=== PATIENT | male | born 1980 | race Caucasian/White ===

== ENCOUNTER 2020-01-26 03:31 | Emergency (ER) | payer OTHER, SELFPAY ==
[2020-01-26 03:37] VITALS: BP 120/83; PULSE 76; RESP 18; TEMP 36.7; O2SAT 100
[2020-01-26 03:41] VITALS: RESP 17
--- NOTE | 2020-01-26 04:09 | ED.OVERDOSE ---
HPI - Overdose General Chief Complaint: Overdose Stated Complaint: OD Time Seen by Provider: 01/26/20 03:37 Source: patient and EMS Mode of arrival: EMS Limitations: no limitations History of Present Illness HPI Narrative: 39-year-old with a history of opioid addiction was brought in from home with the complaints of overdose. Patient states that he used fentanyl about $20 worth earlier. Was found to be unresponsive by his mother. 911 was called and given 6 mg of Narcan by the time he came to the ER he is wide awake alert denies any complaints. Denies any chest pain or shortness of breath. Patient states that he has been in rehab in the past but he has relapsed several times. Presently denies any chest pain no headache nausea or vomiting or fever. MD complaint: accidental overdose Timing confirmed by: caregiver Intent: unknown How Overdose Was Discovered: called family/friend Context: Accidental Overdose: wanted to get high Related Data Home Medications Medication Instructions Recorded Confirmed No Home Medications 01/26/20 01/26/20 Allergies Allergy/AdvReac Type Severity Reaction Status Date / Time vancomycin Allergy Hallucinati Verified 01/26/20 03:43 ng Review of Systems Review of Systems: All systems reviewed & are unremarkable except as noted in HPI and below Constitutional: Constitutional: Reports no additional constitutional complaints Eyes: Eyes: Reports no additional eye complaints ENT: Reports system reviewed and no additional complaints, except as documented Cardiovascular: Cardiovascular: Reports no additional cardiovascular complaints Respiratory: Respiratory: Reports no additional respiratory complaints Gastrointestinal: Gastrointestinal: Reports no additional gastrointestinal complaints Musculoskeletal: Musculoskeletal: Reports no additional musculoskeletal complaints Integumentary/Breasts: Skin/Breast: Reports system reviewed and no additional complaints, except as docu Exam Narrative: Exam Narrative: GENERAL: Well-appearing, well-nourished, and in no acute distress. HEAD: Normocephalic, atraumatic. EYES: PERRLA and EOMI. ENT: Nares clear, no rhinorrhea or epistaxis. Mucous membranes moist. NECK: Supple. CHEST: Clear to auscultation. No respiratory distress. HEART: Regular rate and rhythm. No murmur heard. Normal peripheral pulses. ABDOMEN: Soft, nontender, nondistended, normal active bowel sounds. EXTREMITIES: Normal range of motion. No edema. SKIN: Warm, dry, no rash. NEURO: No focal deficits. Alert and oriented x3. PSYCH: Normal mood and affect. Course Vital Signs Vital signs: Vital Signs Temperature 36.7 C 01/26/20 03:37 Pulse Rate 76 01/26/20 03:37 Respiratory Rate 18 01/26/20 03:37 Blood Pressure 120/83 01/26/20 03:37 Pulse Oximetry 100 01/26/20 03:37 Temperature 36.7 C 01/26/20 03:37 Pulse Rate 76 01/26/20 03:37 Respiratory Rate 17 01/26/20 03:41 Blood Pressure 120/83 01/26/20 03:37 Pulse Oximetry 100 01/26/20 03:37 Discharge Plan Discharge Clinical Impression: Drug overdose Qualifiers: Encounter type: initial encounter Injury intent: accidental or unintentional Qualified Code(s): T50.901A - Poisoning by unspecified drugs, medicaments and biological substances, accidental (unintentional), initial encounter Patient Disposition: Home, Self-Care Condition: Stable Instructions: Antibiotic Form, Adult Overdose (ED) Prescriptions: No Action No Home Medications RF: 0 Follow-up/Referrals: PHYSICIAN,KNIFE GRINDER [Primary Care Provider] - Time of Disposition: 05:14
[2020-01-26 04:42] VITALS: BP 108/88; PULSE 74; RESP 12; O2SAT 99
[2020-01-26 05:39] VITALS: BP 109/75; PULSE 89; RESP 18; O2SAT 99
--- NOTE | 2020-01-26 09:38 | ECG_ITS ---
Measurements Intervals [place] Rate: 86 P: 79 [place]: 144 QRS: 53 QRSD: 99 T: 32 QT: 398 QTc: 477 Interpretive Statements SINUS RHYTHM BASELINE ARTIFACT- I, II, III, AVR, AVL, AVF, V1-V6 NORMAL ECG Electronically Signed On 01-26-2020 9:43:22 CDT by Jerry Baxter D.O.
== END 2020-01-26 05:40 | disposition home or self-care (01) ==
PROVIDERS: Emergency Provider Family Medicine
DX: T50.901A Poisoning by unspecified drugs, medicaments and biological substances, accidental (unintentional), initial encounter (principal)
CPT/HCPCS: 93005; 99283

== ENCOUNTER 2020-05-28 14:51 | Inpatient (IN) | payer OTHER, SELFPAY ==
--- NOTE | ~2020-05-28 | US_ITS ---
EXAMINATION: US venous doppler LE RT DATE: 05/28/2020 15:44 INDICATION: Right lower limb pain, erythema and swelling TECHNIQUE: Grayscale ultrasound images without and with compression and Doppler ultrasound images of the right lower extremity veins were obtained. COMPARISON: None. FINDINGS: The visualized portions of right common femoral vein, profunda (deep) femoral vein, femoral vein, pop liteal vein, peroneal trunk, posterior tibial veins, peroneal veins, gastrocnemius vein and greater s aphenous vein outflow are patent. 2.9 x 0.4 cm anechoic fluid collection anterior to the knee along t he superficial margin of the patella suggestive of prepatellar bursitis. IMPRESSION: 1. No deep venous thrombosis in the right lower limb. 2. Small fluid collection anterior to the patella suggestive of prepatellar bursitis. Reviewed, dictated and finalized at location A. O ADMINISTRATOR IMPRESSION: 1. No deep venous thrombosis in the right lower limb. 2. Small fluid collection anterior to the patella suggestive of prepatellar bur sitis.
--- NOTE | ~2020-05-28 | XR_ITS ---
EXAMINATION: XR shoulder RT min 2V DATE: 05/28/2020 16:00 INDICATION: Pain at the top of the right shoulder post fall one month prior. TECHNIQUE: AP internally and externally rotated, AP oblique externally rotated and transscapular Y vi ews of the right shoulder were obtained. COMPARISON: None FINDINGS: There is approximately 1.2 cm cephalad subluxation of the right clavicle relative to the acromion. Th ere is corresponding widening of the coracoclavicular interval which measures 1.6 cm. Just of a small amount of calcification along the course of the coracoclavicular interval suggesting developing hete rotopic ossification related to coracoclavicular ligament tear. Glenohumeral alignment is normal with normal joint space. No fractures identified. Visualized portions of the lungs are clear. IMPRESSION: Type III acromioclavicular joint separation. Reviewed, dictated and finalized at location A. DENT HALL DIRECTOR
--- NOTE | ~2020-05-28 | XR_ITS ---
EXAMINATION: XR knee RT min 4V DATE: 05/28/2020 15:58 INDICATION: Anterior right knee pain post injury 2 days prior TECHNIQUE: Anteroposterior, 2 oblique and crosstable lateral views of the right knee were obtained COMPARISON: None. FINDINGS: Alignment is normal. No fracture. No joint effusion/layering lipohemarthrosis. Dense soft tissue swe lling anterior to the patella which appears to correspond to the small fluid collection seen on the p rior lower extremity Doppler ultrasound study. Given the additional history of trauma would favor sma ll hematoma over prepatellar bursitis. IMPRESSION: 1. No osseous abnormality. 2. Prepatellar soft tissue swelling with small fluid collection evident on prior ultrasound most like ly small posttraumatic hematoma with differential including bursitis Reviewed, dictated and finalized at location A. T [address] [facility] IMPRESSION: 1. No osseous abnormality. 2. Prepatellar soft tissue swelling with small fluid collection evident on prio r ultrasound most likely small posttraumatic hematoma with differential includi ng bursitis
[2020-05-28 14:56] VITALS: BP 130/79; PULSE 93; RESP 18; TEMP 36.4; O2SAT 99
--- NOTE | 2020-05-28 15:27 | PC.NURSE ---
Taken to US at this time.
[2020-05-28 16:08] LABS: Basophils Absolute Auto 0.1 K/mm3 (0.0-0.1); Basophils Percent Auto 0.4 % (0.2-1.2); Eosinophils Absolute Auto 0.2 K/mm3 (0-0.3); Eosinophils Percent Auto 1.2 % (0-4.4); Hematocrit 42.6 % (42.0-52.0); Hemoglobin 14.4 g/dL (14.0-18.0); Immature Granulocyte Absolute 0.04 K/mm3 (0.00-0.031); Immature Granulocyte Percent A 0.3 % (0-0.5); Lymphocytes Absolute Auto 2.36 K/mm3 (0.9-3.2); Lymphocytes Percent Auto 19.7 % (18.3-44.2); Mean Corpuscular HGB Conc 33.8 g/dl (32-36); Mean Corpuscular Volume 85.9 fl (80-100); Mean Platelet Volume 9.6 fl (7.4-10.4); Monocytes Absolute Auto 1.1 K/mm3 (0.1-0.6); Monocytes Percent Auto 9.5 % (2.6-8.5); Neutrophils Absolute Auto 8.3 K/mm3 (1.3-6.7); Neutrophils Percent Auto 68.9 % (45.5-73.1); Platelet Count Result 251 k/mm3 (150-375); Red Blood Count 4.96 M/mm3 (4.6-6.20); Red Cell Distribution Width 14.1 % (11.5-14.5)
--- NOTE | 2020-05-28 16:14 | ED.LOWEXIN ---
HPI - Extremity Injury (Lower) General Chief Complaint: Extremity Injury, Lower <Thalia Morris PA-C - Last Filed: 05/28/20 18:26> Stated Complaint: R knee wound <LONNY Jones Last Filed: 05/28/20 18:26> Time Seen by Provider: 05/28/20 15:04 <LONNY Jones Last Filed: 05/28/20 18:26> Source: patient <LONNY Jones Last Filed: 05/28/20 18:26> Mode of arrival: ambulatory <LONNY Jones Last Filed: 05/28/20 18:26> Limitations: no limitations <LONNY Jones Last Filed: 05/28/20 18:26> History of Present Illness HPI Narrative: This is a 40 year old male that presents to the ER for right knee pain x 3 days. Reports increasing redness and swelling of the knee. Reports an area where he has noted drainage. Also reports a right shoulder injury one month ago. Reports pain to the area. Reports he was seen after this injury and was supposed to follow up with an orthopedic doctor, but didn't. Denies fever, decreased ROM, or numbness. <LONNY Jones Last Filed: 05/28/20 18:26> Related Data Home Medications: Home Medications Medication Instructions Recorded Confirmed No Home Medications 01/26/20 01/26/20 <LONNY Jones Last Filed: 05/28/20 18:26> Allergies/Adverse Reactions: Allergies Allergy/AdvReac Type Severity Reaction Status Date / Time vancomycin Allergy Hallucinati Verified 05/28/20 15:05 ng <LONNY Jones Last Filed: 05/28/20 18:26> Review of Systems Review of Systems: Narrative: CONSTITUTIONAL: Denies fever CARDIOVASCULAR: Reports edema. SKIN: Reports erythema MUSCULOSKELETAL: Reports joint pain, and myalgia. NEUROLOGIC: Denies numbness <LONNY Jones Last Filed: 05/28/20 18:26> All systems reviewed & are unremarkable except as noted in HPI and below <Thalia Morris PA-C - Last Filed: 05/28/20 18:26> [facility] Social History Social History: Social History (Updated 05/28/20 @ 16:21 by Thalia Morris PA-C) Smoking status: Current every day smoker Substance use: current Substance use type: amphetamines <Thalia Morris PA-C - Last Filed: 05/28/20 18:26> Exam Narrative: Exam Narrative: GENERAL: Well-appearing, well-nourished, and in no acute distress. HEAD: Normocephalic, atraumatic. EYES: EOMI. CHEST: Clear to auscultation. No respiratory distress. No wheezes rales or rhonchi HEART: Regular rate and rhythm. No murmur heard. Normal peripheral pulses. EXTREMITIES: Normal range of motion. Obvious deformity at the right AC joint. Right knee with moderate edema and erythema in the pre-patellar region with an area that is actively draining serous fluid. Erythema and edema extending into the right lower leg. Normal peripheral pulses. Normal sensation SKIN: Warm, dry, no rash. NEURO: No focal deficits. Alert and oriented x3. PSYCH: Normal mood and affect <Thalia Morris PA-C - Last Filed: 05/28/20 18:26> Course HOSPITAL SALES REPRESENTATIVE/PA Physician Supervision For this patient encounter, I reviewed the HOSPITAL SALES REPRESENTATIVE or PA documentation, treatment plan, and medical decision making; and I had [id number] time with this patient. In brief this 40-year-old male came into the emergency department with complaints of leg pain and dental pain. Patient does seem to have a prepatellar bursitis with an associated cellulitis. I do feel he would warrant admission for IV antibiotics. BAY Morris has spoken with hospitalist services for the admission. <Harinder Friend DO - Last Filed: 05/28/20 18:40> Consultations Consultation #1: Spoke with Dr. Headley about patient and work-up who will consult. <Thalia Morris PA-C - Last Filed: 05/28/20 18:26> Date: 05/28/20 <Thalia Morris PA-C - Last Filed: 05/28/20 18:26> Time: 18:24 <Thalia Morris PA-C - Last Filed: 05/28/20 18:26> Consultation #2: Spoke with hospitalist about patient and work-up who accepts admissi
[2020-05-28 16:18] LABS: INR 0.9; Prothrombin Time 12.8 Seconds (11.1-14.7)
[2020-05-28 16:22] LABS: Anion Gap 5 mmol/L (8-16); Blood Urea Nitrogen 12 mg/dL (9-20); CRP 7.2 mg/dL (<1.0); Calcium 8.8 mg/dL (8.4-10.2); Carbon Dioxide 33 mmol/L (22-30); Chloride 98 mmol/L (98-107); Estimated CRCL calculation 113 ml/min; Estimated Glomerular Filt Rate > 60; Glucose 102 mg/dL (75-110); Potassium 3.9 mmol/L (3.4-5.0); Sodium 136 mmol/L (137-145)
[2020-05-28 16:35] LABS: Erythrocyte Sedimentation Rate 18 mm/hr (0-20)
[2020-05-28 16:45] LABS: Uric Acid 4.8 mg/dL (3.5-8.5)
[2020-05-28] MEDS: KETOROLAC 30 MG/ML VIAL (*BKC) IV PUSH (17:22)
[2020-05-28 17:32] LABS: Lactic Acid Reflex 1.1 mmol/L (0.7-2.1)
[2020-05-28] MEDS: CLINDAMYCIN 600 MG/NS 50 ML 600 MG/50 ML PIGGYBACK 100 MG IVPB (17:49)
[2020-05-28 17:52] VITALS: TEMP 36.4
[2020-05-28 18:16] VITALS: BP 116/70; PULSE 88; RESP 16; O2SAT 100
[2020-05-28 18:51] VITALS: BMI 29.2
--- NOTE | 2020-05-28 18:53 | ADMGEN ---
This patient, Pavel Nash, was admitted to Medical Room 248-. Patient/family oriented to hospital policies and general routines including ID bracelet, bed and alarms, visiting hours, pain management, procedures, bathroom and other care routines, personal items, smoking policy, room service/diet, and visiting hours. Information on how to activate the Rapid Response Team has been discussed. Patient/Family are encouraged to report perceived risks to care and to ask questions if they do not understand what they are told or what they should do.
[2020-05-28 19:02] VITALS: BP 118/73; PULSE 89; RESP 14; TEMP 36.2; O2SAT 100
[2020-05-28 21:22] VITALS: BP 108/67; PULSE 91; RESP 16; TEMP 36.6; O2SAT 100
[2020-05-28 23:56] VITALS: BP 107/61
--- NOTE | 2020-05-29 00:10 | PM.IMHP ---
H&P: HPI History of Present Illness Date/Time: 05/29/20 00:10 Chief Complaint: Right knee pain and dental pain Narrative: Pavel Nash is a 40 year old male Who came to the ER for right pain that has been occurring over the last 3 days. The patient denies any injury. He reports increased redness and swelling of the right knee. He has noted some drainage as well. He was complaining of some right shoulder injury that occurred 1 month ago. He is also complaining of right lower tooth pain as well. He states that his tooth has been bothering him and is broken off in the back. He is not on any home medications. He does use fentanyl at times and he also uses methamphetamines. White count was noted to be 12. Shoulder x-ray was read as type 3 acromioclavicular joint separation. Right knee x-ray was read as no osseous abnormality. Prepatellar soft tissue swelling with small fluid collection evident on prior ultrasound most likely small posttraumatic hematoma with differential including bursitis. Venous Dopplers were negative for deep vein thrombosis of the right lower limb small fluid collection anterior to the patella suggestive of prepatellar bursitis. Ortho had been consulted recommended vancomycin and cefazolin. However the patient stated that he had red man syndrome from the vancomycin in the past. Even with Benadryl ordered the patient refused to take the vancomycin. Ortho was made aware. Patient initially was started on clindamycin but stopped and then started on Ancef. Patient is being admitted to inpatient on the date of service of 05/28/2020 Review of Systems Review of Systems: All systems reviewed & are unremarkable except as noted in HPI and below Constitutional: Constitutional: Reports as per HPI and Reports no additional constitutional complaints Eyes: Eyes: Reports as per HPI and Reports no additional eye complaints ENT: Reports system reviewed and no additional complaints, except as documented and Reports Normal hearing present Cardiovascular: Cardiovascular: Reports no additional cardiovascular complaints Respiratory: Respiratory: Reports no additional respiratory complaints and Reports no additional respiratory complaints Gastrointestinal: Gastrointestinal: Reports as per HPI and Reports no additional gastrointestinal complaints Musculoskeletal: Musculoskeletal: Reports no additional musculoskeletal complaints Integumentary/Breasts: Skin/Breast: Reports system reviewed and no additional complaints, except as docu and Reports as per HPI Neurologic: Reports system reviewed and no additional complaints, except as documented, Reports as per HPI and Reports Normal hearing present Psychiatric: Psychiatric: Reports no additional psychiatric complaints and Reports as per HPI Endocrine: Endocrine: Reports no additional endocrine complaints Hematologic/Lymphatic: Hematologic/Lymphatic: Reports no additional hematologic/lymphatic complaints Allergic/Immunologic: Allergic/Immunologic: Reports no additional allergic/immunologic complaints [facility] Past Medical History Medical History (Updated 05/29/20 @ 00:23 by Eliana Jackson NP) Amphetamine use disorder, mild Narcotic drug use fentanyl Tobacco abuse Surgical History Surgical History (Updated 05/29/20 @ 00:16 by Eliana Jackson NP) History of surgery on arm left arm surgery Family History Family History Father Congestive heart failure Diabetes mellitus Social History Social History (Updated 05/29/20 @ 00:18 by Eliana Jackson NP) Social History: the patient tells me that he is unemployed at this time and 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 He has no children. He does occasionally use fentanyl. Occasionally uses methamphetamines the last time use methamphetamines was about 2 days ago. Patient smokes about half pack cigarettes a day. Patient does not have a durable power commonwealth attorney and he is a full co
[2020-05-29] MEDS: KETOROLAC 30 MG/ML VIAL (*BKC) IV PUSH ×2 (00:15→09:33)
[2020-05-29] MEDS: LIDOCAINE HCL 2% VISC SOLN 15 ML UDC PO (01:16)
[2020-05-29 05:54] VITALS: BP 120/66; PULSE 93; RESP 16; TEMP 36.5; O2SAT 99
[2020-05-29] MEDS: ENOXAPARIN 40 MG/0.4 ML SYRINGE SUB-Q (08:17)
[2020-05-29 08:50] LABS: Basophils Percent Auto 0.3 % (0.2-1.2); Eosinophils Absolute Auto 0.2 K/mm3 (0-0.3); Eosinophils Percent Auto 1.5 % (0-4.4); Hematocrit 40.1 % (42.0-52.0); Hemoglobin 13.1 g/dL (14.0-18.0); Immature Granulocyte Absolute 0.04 K/mm3 (0.00-0.031); Immature Granulocyte Percent A 0.3 % (0-0.5); Lymphocytes Absolute Auto 2.09 K/mm3 (0.9-3.2); Lymphocytes Percent Auto 17.9 % (18.3-44.2); Mean Corpuscular HGB Conc 32.7 g/dl (32-36); Mean Corpuscular Hemoglobin 27.9 pg (26-34); Mean Corpuscular Volume 85.5 fl (80-100); Mean Platelet Volume 9.7 fl (7.4-10.4); Monocytes Absolute Auto 1.4 K/mm3 (0.1-0.6); Monocytes Percent Auto 11.6 % (2.6-8.5); Neutrophils Percent Auto 68.4 % (45.5-73.1); Platelet Count Result 268 k/mm3 (150-375); Red Blood Count 4.69 M/mm3 (4.6-6.20); Red Cell Distribution Width 13.9 % (11.5-14.5); White Blood Count 11.7 K/mm3 (4.5-10.0)
--- NOTE | 2020-05-29 09:42 | PM.CNOR ---
Assessment and Plan Assessment and plan (1) Bursitis, prepatellar, right: Code(s): M70.41 - Prepatellar bursitis, right knee Status: Acute Assessment and Plan: History, exam and radiographs reviewed with the patient. On exam, redness, warmth, swelling and drainage of the right knee prepetallar bursa noted. Multiple scabs/lesions noted to the anterior knee, some of which are draining. Discussed condition, nature, etiology and course of natural history. Conservative and operative treatment options reviewed as well the risks and benefits of each. Recommended I&D of right prepatellar bursa by my attending physician, Dr. Headley. Discussed I&D Right Prepatellar Bursa Risks of surgery including but not limited to neurovascular damage, wound complications, blood clot, pulmonary embolus, stroke, myocardial infarction, anesthetic risks up to and including were reviewed. Continued pain and possible dysfunction were explained. Poor wound healing risks discussed. No guarantees were offered. The patient understands and wishes to proceed. Plan: I&D Right Prepatellar Bursa by Dr. Headley. NPO at midnight. Continue IV antibiotics in the interim. WBAT RLE. (2) Acromioclavicular joint separation, type 3: Qualifiers: Encounter type: subsequent encounter Laterality: right Qualified Code(s): S43.101D - Unspecified dislocation of right acromioclavicular joint, subsequent encounter Code(s): S43.109A - Unspecified dislocation of unspecified acromioclavicular joint, initial encounter Status: Acute Assessment and Plan: History, exam and radiographs reviewed with the patient. Per patient, shoulder injury occurred more than one month ago. He sought treatment at the ER at that time and then failed to follow up. Radiographs of the right shoulder reveal a Type III acromioclavicular joint separation. Condition, nature, etiology and course of natural history discussed. Conservative and operative treatment options reviewed as well as the risks and benefits of both. No emergent treatment indicated at this time. Patient may follow up as an outpatient. History of Present Illness HPI Consult date: 05/29/20 Requesting physician: Loreto Schrader PA-C Consult reason: other (Right Shoulder AC joint Separation/Right Knee Infected Prepatellar Bursitis ) Chief complaint: Right lower extremity prepatellar bursitis Narrative: 40-year-old male admitted with right knee prepatellar bursitis and right shoulder pain. History, exam and radiographs reviewed with the patient. He reports initially having noticed scabs on the right anterior aspect of the knee approximately 1 week ago. He endorses picking the scabs and then over the last 3 days has noticed increased redness, warmth and swelling. This prompted his arrival to the emergency room for further evaluation. He also notes right shoulder pain which began approximately 1 month ago after falling on the stairs. He states that he was seen in the emergency room at that time and pursued no further treatment. 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 He was treated with vancomycin at that time and experience red man syndrome. He was then transferred to another hospital for an inpatient stay of 6 weeks of IV antibiotics for treatment of endocarditis. He is an IV drug user and has used both fentanyl and methamphetamines yesterday. He currently lives in [place] with mother. 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 Review of Systems Constitutional: Constitutional: Reports no additional constitutional complaints, Denies excessive sweating, Denies fever(s) and Denies weight gain Eyes: Eyes: Reports no additional eye complaints and Denies change in vision ENT: Reports system reviewed and no additional complaints, except as documented and Reports Normal hearing present Cardiovascular: Cardiovascular: D
[2020-05-29] MEDS: PANTOPRAZOLE 40 MG TABLET PO (10:25)
--- NOTE | 2020-05-29 10:38 | PM.IMPN ---
Progress Note: A&P Assessment and Plan (1) Bursitis, prepatellar, right: Code(s): M70.41 - Prepatellar bursitis, right knee Status: Acute Assessment and Plan: Ortho consulted, spoke with WILFRIDO Alonso - appreciate further recommendations. Plan is for I&D by Dr Headley tomorrow. Weight bearing as tolerated on R leg. Continue IV antibiotics with Ancef. He declines Vancomycin even with benadryl due to history of red man syndrome with vanc in the past. History of MRSA left arm wound + endocarditis in 2016 requiring 2 months hospitalization for IV abx. Appreciate infectious disease consultation in this setting. Wound culture and blood cultures are pending. (2) Acromioclavicular joint separation, type 3: Qualifiers: Encounter type: subsequent encounter Laterality: right Qualified Code(s): S43.101D - Unspecified dislocation of right acromioclavicular joint, subsequent encounter Code(s): S43.109A - Unspecified dislocation of unspecified acromioclavicular joint, initial encounter Status: Acute Assessment and Plan: R shoulder pain after a fall over 1 month ago for which he was reportedly seen in the ED and did not follow up with ortho. XR shows type III AC joint separation R shoulder. Ortho recommends outpatient follow up. He is in a sling. (3) Pain, dental: Code(s): K08.89 - Other specified disorders of teeth and supporting structures Status: Acute Assessment and Plan: R lower tooth pain x months . He needs to see a dentist and we discussed this at length. He is on IV ancef. Continue pain control with toradol and tylenol for now. Protonix for GI ppx. (4) Substance abuse: Code(s): F19.10 - Other psychoactive substance abuse, uncomplicated Status: Chronic Assessment and Plan: He uses fentanyl by injection daily for the last few months and uses meth by injection around 3x per week as well Used both fentanyl and meth yesterday 05/28. He tells me he did not inject any drugs into his knee. Cessation encouraged and care coordination aware to provide resources. (5) Tobacco abuse: Code(s): Z72.0 - Tobacco use Status: Chronic Assessment and Plan: Patient declines nicotine patch at this time. Subjective Date/time seen: 05/29/20 10:00 Interval history: Mr. Nash is a 40yo M admitted for right knee infection. He also has right shoulder joint after a fall > 1 month ago as well as dental pain to lower right tooth for months . He describes he first noticed pain, redness swelling to right knee around 1 week ago which has been worsening since then. He admits to using a knife to cut open the sore on his right knee on Friday 05/26 and pus drained out, per patient. It is still spontaneously draining now. He denies chest pain, shortness of breath, weakness, nausea or vomiting. Thinks he had fevers and chills at home. He uses fentanyl by injection daily for the last few months and uses meth by injection around 3x per week as well; used both fentanyl and meth yesterday 05/28. He tells me he did not inject any drugs into his knee. His pain to right lower tooth is actually the worst of his pain this morning. Review of Systems Review of Systems: All systems reviewed & are unremarkable except as noted in HPI and below Exam Narrative: Exam Narrative: General: Male ambulating independently in the room, limping but in no acute distress. HEENT: Normocephalic, EOMI, oral mucosa moist, right back lower molar is broken and discolored with surrounding erythematous gum. Cardiovascular: Rate and rhythm are regular. No notable murmur, rub, or gallop. Respiratory: Lungs clear to auscultation bilaterally. Respirations even and non-labored. [place]
--- NOTE | 2020-05-29 12:48 | WPDINFPN2 ---
Progress Note: A&P Assessment and Plan (1) Bursitis, prepatellar, right: Code(s): M70.41 - Prepatellar bursitis, right knee Status: Acute Assessment and Plan: r knee prepatellar bursitis REC Ancef #2. He declines Vanc despite my recommendation and is aware of the potential for untreated infection as a result. He asks if he can go home today, but I advised that IV therapy is optimal treatment at this stage of illness. Subjective Date/time seen: 05/29/20 12:48 Objective Data Vital Signs Vital Signs: Vital Signs - 24 hr 05/28/20 14:56 05/28/20 17:52 05/28/20 18:16 Temperature 36.4 C 36.4 C Pulse Rate 93 88 Respiratory Rate 18 16 Blood Pressure 130/79 116/70 Pulse Oximetry 99 100 05/28/20 19:02 05/28/20 21:22 05/28/20 23:56 Temperature 36.2 C L 36.6 C Pulse Rate 89 91 Respiratory Rate 14 16 Blood Pressure 118/73 108/67 107/61 Pulse Oximetry 100 100 05/29/20 05:54 Temperature 36.5 C Pulse Rate 93 Respiratory Rate 16 Blood Pressure 120/66 Pulse Oximetry 99 Intake/Output Intake/Output: Intake & Output 05/26/20 05/27/20 05/28/20 05/29/20 23:59 23:59 23:59 23:59 Intake Total 100 580 Balance 100 580 Meds/Results Medications: Active Medications Generic Name Dose Route Start Last Admin Trade Name Freq PRN Reason Stop Dose Admin Enoxaparin Sodium 40 mg 05/29/20 09:00 05/29/20 08:17 Enoxaparin 40 Mg/0.4 Ml Syringe SUB-Q 40 mg DAILY VADIM Administration Cefazolin Sodium 1 gm in 50 mls @ 100 mls/hr 05/28/20 23:30 05/29/20 06:17 Ancef 1 Gm/D5w 50 Ml Pm IVPB Infused Q8HR VADIM Infusion Acetaminophen 1,000 mg in 100 mls @ 400 mls/hr 05/29/20 08:26 Ofirmev 1,000 Mg Ivpb IVPB 05/31/20 00:24 Q6H PRN Pain Rated 5 or Less Ketorolac Tromethamine 30 mg 05/29/20 08:23 05/29/20 09:33 Ketorolac 30 Mg/Ml Vial (*Bkc) IV PUSH 30 mg Q6H PRN Administration Pain Rated 6 or Greater Ondansetron HCl 4 mg 05/29/20 08:27 Ondansetron Inj 4 Mg/2 Ml Vial IV PUSH Q6H PRN Nausea And Vomiting Pantoprazole Sodium 40 mg 05/29/20 09:00 05/29/20 10:25 Pantoprazole 40 Mg Tablet PO 40 mg QAM VADIM Administration Radiology Results: ITS Impressions Venous Doppler Study 05/28/20 15:52 IMPRESSION: 1. No deep venous thrombosis in the right lower limb. 2. Small fluid collection anterior to the patella suggestive of prepatellar bursitis. Knee X-Ray 05/28/20 16:02 IMPRESSION: 1. No osseous abnormality. 2. Prepatellar soft tissue swelling with small fluid collection evident on prior ultrasound most likely small posttraumatic hematoma with differential including bursitis Shoulder X-Ray 05/28/20 16:03 IMPRESSION: Type III acromioclavicular joint separation. Labs Labs: Laboratory Results - last 24 hr 05/28/20 05/28/20 05/28/20 16:00 16:01 16:01 WBC 12.0 H RBC 4.96 Hgb 14.4 Hct 42.6 MCV 85.9 MCH 29.0 MCHC 33.8 RDW 14.1 Plt Count 251 MPV 9.6 Immature Gran % (Auto) 0.3 Neut % (Auto) 68.9 Lymph % (Auto) 19.7 [place] % (Auto) 9.5 H Eos % (Auto) 1.2 Baso % (Auto) 0.4 Lymph # (Auto) 2.36 [place] # (Auto) 1.1 H Eos # (Auto) 0.2 Baso # (Auto) 0.1 Abs Immat Gran (auto) 0.04 H Absolute Neuts (auto) 8.3 H Absolute Nucleated RBC 0.0 Nucleated RBC % 0.0 ESR 18 PT INR APTT Sodium 136 L Potassium 3.9 Chloride 98 Carbon Dioxide 33 H Anion Gap 5 L BUN 12 Creatinine 0.80 Estim Creat Clear Calc 113 Estimated GFR > 60 Glucose 102 Lactic Acid Uric Acid 4.8 Calcium 8.8 C-Reactive Protein 7.2 H 05/28/20 05/28/20 05/29/20 16:01 17:11 08:35 WBC 11.7 H RBC 4.69 Hgb 13.1 L Hct 40.1 L MCV 85.5 MCH 27.9 MCHC 32.7 RDW 13.9 Plt Count 268 MPV 9.7 Immature Gran % (Auto) 0.3 Neut % (Auto) 68.4 Lymph % (Auto) 17.9 L [place] % (Auto)
--- NOTE | 2020-05-29 13:15 | PC.NURSE ---
05/29/20 1315 Patient found with dressing pushed down and squeezing his wound on his knee. Patient educated for a second time that he needs to keep his hands away from the wound and not squeeze it. Dressing reapplied. He will be having and incision and drainage with Dr. Gusman tomorrow.
--- NOTE | 2020-05-29 13:48 | CONS_ITS ---
DATE OF CONSULTATION: 05/29/2020 REASON FOR CONSULTATION: Right knee infection. HISTORY OF PRESENT ILLNESS: The patient is a 40-year-old male who has a previous infection of his left forearm, which required vancomycin. He apparently developed red man syndrome as a result. He was not treated by myself. He presented to the hospital yesterday with 3 days of swelling, redness, and pain over the right knee, worse with weightbearing. The patient is irritable and is not willing to provide to me any further details of his symptoms. I did review information provided to his other physicians. ALLERGIES: NONE, VANCOMYCIN INTOLERANCE ABOVE. PRESENT MEDICATIONS: Cefazolin day #2. HABITS: Active drug user, methamphetamine, also fentanyl and tobacco. PAST MEDICAL HISTORY: Previous endocarditis, details not available, and he did have surgery on his left arm. REVIEW OF SYSTEMS: Cutaneous, musculoskeletal, constitutional, endocrine, GI otherwise negative. FAMILY HISTORY: Not pertinent to his present illness. SOCIAL HISTORY: He is unemployed and lives locally with his mother. PHYSICAL EXAMINATION: GENERAL: This is a middle-aged male who appears younger than his actual age. No acute distress. VITAL SIGNS: Afebrile since arrival, 93, 16, 120/66. SKIN: No generalized rash. No erythroderma. EENT: The conjunctivae are normal. NECK: No masses or adenopathy. LUNGS: Clear to auscultation. CARDIAC: Regular rate and rhythm. No murmurs. ABDOMEN: Firm, nontender, nondistended. EXTREMITIES: No clubbing, cyanosis, or edema. MUSCULOSKELETAL: Longitudinal scar, ulnar aspect, left forearm well healed. Over the right knee has anterior edema, erythema, skin desquamation and partial-thickness ulcers each about 1 cm in diameter. There is also warmth. No purulence expressible. No fluctuance. LABORATORY DATA: Wound culture in process. White count yesterday 12, today 11.7, hemoglobin 13.1, platelets are 268. Chemistry panel normal except for a sodium 136 and a CRP of 7.2. RADIOLOGY: Knee x-ray, soft tissue swelling. No bony abnormalities. ASSESSMENT: 1. Right knee prepatellar bursitis, cutaneous mami suspected, noninfectious causes of his present illness are unlikely. 2. Polysubstance abuse. RECOMMENDATIONS: 1. Continue Ancef. 2. Orthopedic intervention planned for tomorrow if the patient consents. 3. He declines vancomycin despite my explanation of potential for untreated infection. Similarly, I do not recommend oral antibiotics at this time, in answer to his question. Thank you very much for asking me to see him. We will follow up. He is of course not a candidate for unsupervised IV access. JENNIFFER BOYKIN M.D. STORE OPERATIONS SPECIALIST STORE OPERATIONS SPECIALIST D Zhao MT: [place]
[2020-05-29 14:00] VITALS: BP 120/79; PULSE 85; RESP 17; TEMP 36.2; O2SAT 100
[2020-05-29 20:00] VITALS: BP 137/76; PULSE 95; RESP 20; TEMP 36.4; O2SAT 100
[2020-05-30] MEDS: KETOROLAC 30 MG/ML VIAL (*BKC) IV PUSH (01:01)
[2020-05-30 04:00] VITALS: BP 108/70; PULSE 94; RESP 18; TEMP 36.2; O2SAT 97
[2020-05-30 05:37] LABS: Basophils Percent Auto 0.4 % (0.2-1.2); Eosinophils Absolute Auto 0.2 K/mm3 (0-0.3); Eosinophils Percent Auto 2.8 % (0-4.4); Hemoglobin 12.1 g/dL (14.0-18.0); Immature Granulocyte Absolute 0.03 K/mm3 (0.00-0.031); Immature Granulocyte Percent A 0.4 % (0-0.5); Lymphocytes Absolute Auto 2.55 K/mm3 (0.9-3.2); Lymphocytes Percent Auto 31.3 % (18.3-44.2); Mean Corpuscular HGB Conc 32.7 g/dl (32-36); Mean Corpuscular Hemoglobin 27.8 pg (26-34); Mean Corpuscular Volume 84.9 fl (80-100); Mean Platelet Volume 9.9 fl (7.4-10.4); Monocytes Absolute Auto 0.8 K/mm3 (0.1-0.6); Monocytes Percent Auto 10.1 % (2.6-8.5); Neutrophils Absolute Auto 4.5 K/mm3 (1.3-6.7); Platelet Count Result 231 k/mm3 (150-375); Red Blood Count 4.36 M/mm3 (4.6-6.20); Red Cell Distribution Width 13.7 % (11.5-14.5); White Blood Count 8.1 K/mm3 (4.5-10.0)
[2020-05-30 05:54] LABS: Alanine Aminotransferase 24 U/L (4-50); Albumin Level 3.5 g/dL (3.5-5.1); Alkaline Phosphatase 61 U/L (38-126); Anion Gap 1 mmol/L (8-16); Aspartate Amino Transferase 29 U/L (17-59); Bilirubin,Total 0.6 mg/dL (0.2-1.3); Blood Urea Nitrogen 14 mg/dL (9-20); Calcium 8.5 mg/dL (8.4-10.2); Carbon Dioxide 33 mmol/L (22-30); Chloride 102 mmol/L (98-107); Estimated CRCL calculation 100 ml/min; Estimated Glomerular Filt Rate > 60; Glucose 97 mg/dL (75-110); Potassium 4.5 mmol/L (3.4-5.0); Sodium 136 mmol/L (137-145)
--- NOTE | 2020-05-30 07:25 | WPDHPUPDATE1 ---
History and Physical Update Update Date/Time: 05/30/20 07:25 History and Physical has been reviewed, including an updated exam of the patient. There are NO changes in the patient's condition. Risks, benefits, and alternatives have been discussed and questions answered. Patient agrees to proceed with procedure.
--- NOTE | 2020-05-30 08:20 | WPDANESEPPF ---
Anes - Initial Pre Proc Eval Procedure: Operation Date: 05/30/20 12:00 Proposed Procedures p Incision and Drainage Right Prepatella Bursa - Jim Headley MD Date/Time: 05/30/20 08:20 Surgeon: Alia Harmon PA-C Pre Op Diagnosis: Right lower extremity prepatellar bursitis Patient Data Age: 40 Gender: M Height: 1.7 m Weight: 84.7 kg Last Vital Signs Temp 36.2 C L 05/30/20 04:00 Pulse 94 05/30/20 04:00 Resp 18 05/30/20 04:00 BP 108/70 05/30/20 04:00 Pulse Ox 97 05/30/20 04:00 Allergies Allergy/AdvReac Type Severity Reaction Status Date / Time vancomycin Allergy Red man Verified 05/28/20 19:01 Home Medications Medication Instructions Recorded Confirmed Type No Home Medications 01/26/20 05/28/20 History Laboratory Tests 05/29/20 05/30/20 05/30/20 08:35 05:05 05:05 WBC 11.7 K/mm3 H K/mm3 8.1 K/mm3 K/mm3 (4.5-10.0) (4.5-10.0) RBC 4.69 M/mm3 M/mm3 4.36 M/mm3 L M/mm3 (4.6-6.20) (4.6-6.20) Hgb 13.1 g/dL L g/dL 12.1 g/dL L g/dL (14.0-18.0) (14.0-18.0) Hct 40.1 % L % 37.0 % L % (42.0-52.0) (42.0-52.0) MCV 85.5 fl fl 84.9 fl fl (80-100) (80-100) MCH 27.9 pg pg 27.8 pg pg (26-34) (26-34) MCHC 32.7 g/dl g/dl 32.7 g/dl g/dl (32-36) (32-36) RDW 13.9 % % 13.7 % % (11.5-14.5) (11.5-14.5) Plt Count 268 k/mm3 k/mm3 231 k/mm3 k/mm3 (150-375) (150-375) MPV 9.7 fl fl 9.9 fl fl (7.4-10.4) (7.4-10.4) Immature Gran % (Auto) 0.3 % % 0.4 % % (0-0.5) (0-0.5) Neut % (Auto) 68.4 % % 55.0 % % (45.5-73.1) (45.5-73.1) Lymph % (Auto) 17.9 % L % 31.3 % % (18.3-44.2) (18.3-44.2) [place] % (Auto) 11.6 % H % 10.1 % H % (2.6-8.5) (2.6-8.5) Eos % (Auto) 1.5 % % 2.8 % % (0-4.4) (0-4.4) Baso % (Auto) 0.3 % % 0.4 % % (0.2-1.2) (0.2-1.2) Lymph # (Auto) 2.09 K/mm3 K/mm3 2.55 K/mm3 K/mm3 (0.9-3.2) (0.9-3.2) [place] # (Auto) 1.4 K/mm3 H K/mm3 0.8 K/mm3 H K/mm3 (0.1-0.6) (0.1-0.6) Eos # (Auto) 0.2 K/mm3 K/mm3 0.2 K/mm3 K/mm3 (0-0.3) (0-0.3) Baso # (Auto) 0.0 K/mm3 K/mm3 0.0 K/mm3 K/mm3 (0.0-0.1) (0.0-0.1) Abs Immat Gran (auto) 0.04 K/mm3 H K/mm3 0.03 K/mm3 K/mm3 (0.00-0.031) (0.00-0.031) Absolute Neuts (auto) 8.0 K/mm3 H K/mm3 4.5 K/mm3 K/mm3 (1.3-6.7) (1.3-6.7) Absolute Nucleated RBC 0.0 K/mm3 K/mm3 0.0 K/mm3 K/mm3 (0.0-0.012) (0.0-0.012) Nucleated RBC % 0.0 % % 0.0 % % (0.0-0.2) (0.0-0.2) Sodium 136 mmol/L L mmol/L (137-145) Potassium 4.5 mmol/L mmol/L (3.4-5.0) Chloride 102 mmol/L mmol/L (98-107) Carbon Dioxide 33 mmol/L H mmol/L (22-30) Anion Gap 1 mmol/L L mmol/L (8-16) BUN 14 mg/dL mg/dL (9-20) Creatinine 0.80 mg/dL mg/dL (0.7-1.3) Estim Creat Clear Calc 100 ml/min ml/min Estimated GFR > 60 (59 - ) Glucose 97 mg/dL mg/dL (75-110) Calcium 8.5 mg/dL mg/dL (8.4-10.2) Magnesium 2.0 mg/dL mg/dL (1.6-2.3) Total Bilirubin 0.6 mg/dL mg/dL (0.2-1.3) AST 29 U/L U/L (17-59) ALT 24 U/L U/L (4-50) Alkaline Phosphatase 61 U/L U/L (38-126) Total Protein 7.0 g/dL g/dL (6.3-8.2) Albumin 3.5 g/dL g/dL (3.5-5.1) [facility] Past Medical History Medical History (Updated 05/30/20 @ 08:21 by Chip Mccallum MD) Amphetamine use disorder, mild Arm abscess Endocarditis MRSA (methicillin resistant staph aureus) culture positive Narcotic drug use fentanyl Overweight (BMI 25.0-29.9) Substance abuse Tobacco abuse Surgical History Surgical History (Updated 05/29/20 @ 00:16 by Eliana Jackson NP) History of surgery on arm left arm surgery Family History Family History Father Congestive heart
--- NOTE | 2020-05-30 09:11 | P.PNCROSS_ITS ---
Event Note Event Note Event Note: Patient is a 40-year-old male here for right prepatellar bursitis with history of IV drugs. His blood cultures became positive this morning growing gram-positive cocci in clusters with a wound culture also growing Staph aureus with no sensitivities at this time. Patient decided to leave against medical advice after speaking with Ortho FL[employer] COMMUNICATIONS SPECIALIST and nursing staff. He was gone before I was able to see him but I called him on his cell phone and he answered. I told him that he had positive blood cultures that needed to be treated immediately and that if this was not treated this would cause . He was alert and oriented and in his right mind and stated he was going to go to a different hospital. When asked which hospital, he told me I am not sure yet, I will let you know when I get there . I told him he could come back to [facility] and I advised him to go to the nearest hospital. I again explained the risk of leaving against medical advice and he understood.
--- NOTE | 2020-05-30 09:45 | PM.PNORT ---
Progress Note: A&P Assessment and Plan (1) Bursitis, prepatellar, right: Code(s): M70.41 - Prepatellar bursitis, right knee Status: Acute Assessment and Plan: Called the patient's bedside by the nursing staff at approximately 9:00 a.m. due to his desire to leave against medical advice. The patient was set to go to the operating room today for an I&D of the right prepatellar bursa and operating room staff came to the bedside to take him to the operating room however the patient refused. After reporting to the bedside, I discussed with the patient the risk of leaving against medical advice in regards to his right knee infection. We discussed the wrist of worsening infection, joint infection, loss of limb, bacteremia, sepsis, endocarditis and additional health risk associated with an untreated infection up to and including . The patient verbalized understanding and was able to repeat the wrist back to me. Both the nursing plant protection supervisor an charge nurse were present for the conversation. The patient is alert and oriented x4 and able to make medical decisions for himself. He refused to give reason for his desire to leave against medical advice. After strongly encouraging him to remain hospitalized for IV antibiotics and surgical intervention, the patient removed his own IV and got dressed and left the hospital. Appropriate paperwork was completed. Attending physician, Dr. Headley. Hospitalist aware as well. Subjective Subjective Date/Time Seen: 05/30/20 0900 Interval history: Called to bedside as patient is requesting to leave AMA. Surgery department came to bedside to take him downstairs for the I&D of his right prepatellar bursa. Patient refused to go and requested to leave. Nursing staff contact me via telephone to report to bedside to discuss risks of leaving AMA. Review of Systems Review of Systems: Narrative: Refused to answer questions Exam Narrative: Exam Narrative: Refused assessment Objective Data Vital Signs Vital Signs: Vital Signs - 24 hr 05/29/20 14:00 05/29/20 20:00 05/30/20 04:00 Temperature 36.2 C L 36.4 C L 36.2 C L Pulse Rate 85 95 94 Respiratory Rate 17 20 18 Blood Pressure 120/79 137/76 108/70 Pulse Oximetry 100 100 97 Intake/Output Intake/Output: Intake & Output 05/27/20 05/28/20 05/29/20 05/30/20 23:59 23:59 23:59 23:59 Intake Total 100 1460 50 Balance 100 1460 50 Meds/Results Medications: Active Medications Generic Name Dose Route Start Last Admin Trade Name Freq PRN Reason Stop Dose Admin Enoxaparin Sodium 40 mg 05/29/20 09:00 05/29/20 08:17 Enoxaparin 40 Mg/0.4 Ml Syringe SUB-Q 40 mg DAILY VADIM Administration Fentanyl Citrate 25 mcg 05/30/20 08:18 Fentanyl Citrate Inj (*Crx) 100 Mcg/2 Ml Vial IV PUSH Q2M PRN Pain Hydromorphone HCl 0.25 mg 05/30/20 08:18 Hydromorphone Hcl Inj (*Crx) 1 Mg/Ml Syr IV PUSH Q5M PRN Pain Cefazolin Sodium 1 gm in 50 mls @ 100 mls/hr 05/28/20 23:30 05/30/20 06:46 Ancef 1 Gm/D5w 50 Ml Pm IVPB Infused Q8HR [facility] Infusion Acetaminophen 1,000 mg in 100 mls @ 400 mls/hr 05/29/20 08:26 Ofirmev 1,000 Mg Ivpb IVPB 05/31/20 00:24 Q6H PRN Pain Rated 5 or Less Lactated Ringer's 1,000 mls @ 30 mls/hr 05/30/20 08:20 Lr - Lactated Ringers Iv IV CONT .Q24H [facility] Lactated Ringer's 1,000 mls @ 30 mls/hr 05/30/20 08:20 Lr - Lactated Ringers Iv IV CONT .Q24H [facility] Ketorolac Tromethamine 30 mg 05/29/20 08:23 05/30/20 01:01 Ketorolac 30 Mg/Ml Vial (*Bkc) IV PUSH 30 mg Q6H PRN Administration Pain Rated 6 or Greater Ondansetron HCl 4 mg 05/29/20 08:27 Ondansetron Inj 4 Mg/2 Ml Vial IV PUSH Q6H PRN Nausea And Vomiting Ondansetron HCl 4 mg 05/30/20 08:18 Ondansetron Inj 4 Mg/2 Ml Vial IV PUSH ONCE PRN Nausea Oxycodone HCl 5 mg 05/30/20 08:18 Oxycodone Hcl (*Crx) 5 Mg Tab Ir PO ONCE PRN Pain Pa
--- NOTE | 2020-05-30 09:54 | PC.NURSE ---
Addendum entered by Farzaneh White RN 05/30/20 10:06: 05/30/20 0900 Original Note: Patient notified of risks of leaving AMA. Dr. Gusman, Kathy Chaney, and Alia HERMOSILLO notified. Patient signed AMA form. Celeste Chaney and the maintenance worker house trailer Asia Ayoub went into great detail about informing the patient of his risk of leaving could lead to further infection and even . Patient was aware of all infections risk and stated he was aware of his risk of dying and wanted to leave still. Patient verbalized all risks back and this was witnessed by Celeste chaney, Asia Ayoub, Gayla Rocha, and Gayla Calvillo. Personal belongings returned. IV site removed.
== END 2020-05-30 09:20 | disposition left against medical advice (07) | DRG 351 ==
LOC: ANHED 17:31 → ANH2MED 18:26
PROVIDERS: Nurse Practitioner; Physician Assistant; Admitting Provider Internal Medicine; Emergency Provider Emergency Medicine; Visit Provider Physician Assistant
DX: M70.41 Prepatellar bursitis, right knee (principal); R78.81 Bacteremia; S43.101D Unspecified dislocation of right acromioclavicular joint, subsequent encounter; W10.9XXD Fall (on) (from) unspecified stairs and steps, subsequent encounter; F17.210 Nicotine dependence, cigarettes, uncomplicated; F15.10 Other stimulant abuse, uncomplicated; F11.90 Opioid use, unspecified, uncomplicated; K08.89 Other specified disorders of teeth and supporting structures; Z86.14 Personal history of Methicillin resistant Staphylococcus aureus infection; Z86.79 Personal history of other diseases of the circulatory system
CPT/HCPCS: 36415; 73030; 73564; 80048; 80053; 83605; 83735; 84550; 85025; 85610; 85652; 85730; 86140; 87040; 87070; 87077; 87147; 87186; 87205; 93971; 96374; 99285; A4565; A9270; J0690; J1650; J1885